=== PATIENT | male | born 1960 | race Two or more races ===

== ENCOUNTER 2019-11-23 17:45 | Inpatient (IN) | payer MEDICAID ==
[~2019-11-23] VITALS: Ht 167.6 cm; Wt 54.4 kg
[2019-11-23] MEDS ORDERED: IV NORMAL SALINE 1000 ML BAG IV ONE (18:15)
[2019-11-23 18:38] LABS: BASOPHILS # (AUTO) 0.1 K/uL (0.0-8.0); EOSINOPHILS # (AUTO) 0.1 K/uL (0.0-0.7); EOSINOPHILS % (AUTO) 0.9 % (0.0-7.0); HEMATOCRIT 36.2 % (36.7-47.1); HEMOGLOBIN 11.6 g/dL (12.5-16.3); LYMPHOCYTES # (AUTO) 2.7 K/uL (20.0-40.0); LYMPHOCYTES % (AUTO) 28.4 % (20.5-51.5); MEAN CORPUSCULAR HEMOGLOBIN 23.5 uug (23.8-33.4); MEAN CORPUSCULAR HGB CONC 32 g/dL (32.5-36.3); MEAN CORPUSCULAR VOLUME 73.3 fL (73.0-96.2); MONOCYTES # (AUTO) 0.9 K/uL (2.0-10.0); NEUTROPHILS # (AUTO) 5.7 K/uL (1.8-8.9); NEUTROPHILS % (AUTO) 60.7 % (38.5-71.5); PLATELET COUNT (AUTO) 456 K/uL (152-348); RED BLOOD CELL COUNT(AUTO) 4.94 MIL/uL (4.06-5.63); WHITE BLOOD COUNT (AUTO) 9.5 K/uL (3.6-10.2)
--- NOTE | 2019-11-23 18:57 | NUR ---
Pt BIB [facility], reports that they were called to [facility] for Heroin OD, and facility volunteers administered nasal naloxone x 1; paramedics had no other info. Pt alert but not responsive and did not follow commands. Pt kept moving during attempt at IV, kept pulling at wires and kicking legs. Called [facility] for pt, pt was restrained in 4 points, soft restraints. IV 20g placed in right upper arm, blood drawn and taken by agriculture laboratory technician, IV secured w/tape and coban. EKG done and given to eva THOMAS.
[2019-11-23 19:00] LABS: ALANINE AMINOTRANSFERASE 22 U/L (16-63); ALKALINE PHOSPHATASE 101 U/L (50-136); ASPARTATE AMINOTRANSFERASE 31 U/L (15-37); BILIRUBIN,DIRECT 0.1 mg/dL (0.0-0.2); BILIRUBIN,TOTAL 0.3 mg/dL (0.2-1.0); CARBON DIOXIDE 28 mmol/L (21-32); CHLORIDE 101 mmol/L (98-107); CREATININE 0.8 mg/dL (0.6-1.3); GLUCOSE 89 mg/dL (74-106); POTASSIUM 3.5 mmol/L (3.5-5.1); UREA NITROGEN, BLOOD 14 mg/dL (7-18)
--- NOTE | 2019-11-23 19:15 | NUR ---
Received report from AM nurse Valerio. Assume care for patient at this time. Pt noted with 4 point restraints but still unable to keep still in bed, continues to be restless. Labs and other interventions unable to be done at this time. Will wait for medications to work and for patient to calm down. Restraint assessment will be performed every 15 minutes going forward. VS monitored and stable at this time. Side rails up x 2. Bed locked in position. Cov[address] Will continue to monitor patient.
[2019-11-23 19:19] LABS: ETHANOL < 3 MG/DL (0-0)
--- NOTE | 2019-11-23 19:24 | NUR ---
[facility] Authorization number [id number]
[2019-11-23] MEDS ORDERED: LORAZEPAM 2 MG/1 ML VIAL IV ONE (19:30)
[2019-11-23 19:32] LABS: ACETAMINOPHEN < 2.0 ug/mL (10-30)
[2019-11-23] MEDS ORDERED: LORAZEPAM 2 MG/1 ML VIAL ONE (19:33)
[2019-11-23] MEDS ORDERED: CEFTRIAXONE 1 G in IV DEXTROSE 5% 50 ML IV ONE (19:45)
[2019-11-23] MEDS ORDERED: AZITHROMYCIN IV 500 MG in IV DEXTROSE 5% 250 ML IV ONE (19:45)
[2019-11-23 20:10] LABS: FERRITIN 25 ng/mL (26-388); LACTATE DEHYDROGENASE 223 U/L (85-227)
--- NOTE | 2019-11-23 20:15 | NUR ---
Pt went down for CT, assisted by field contact technician.
[2019-11-23 20:36] LABS: CREATINE KINASE, TOTAL 256 U/L (39-308)
[2019-11-23] MEDS ORDERED: CEFTRIAXONE /D5W 50ML IVPB **ER PYXIS IV ONE (20:48)
[2019-11-23] MEDS ORDERED: AZITHROMYCIN 500MG/ D5W 250ML IVPB **ER PYXIS ONLY IV ONE (20:48)
--- NOTE | 2019-11-23 21:15 | NUR ---
Pt back from CT at 2042. Asleep and does not appear combative at this time. Will release from restraints at this time. Complete linen change and good perineal care done because patient accidently wet himself while down on CT. Patient was not combative during care at all, even during in and out sandoval catheterization done, urine sample obtained. Placed patient on O2 because while sleeping his saturation fluctuates to 86-88% on RA. Head kept elevated. All due IV meds given and tolerated well, no issues noted. Kept on monitor. Tele sinus rhythm. Side rails up x2. Bed locked in place. Covid19/Fall/Safety precautions in place.
[2019-11-23] MEDS ORDERED: SODIUM BICARBONATE 4.2 % (NEUT) 5 ML VIAL TP ONE (21:30)
[2019-11-23] MEDS ORDERED: LIDOCAINE HCL 2% 20 ML VIAL TP ONE (21:30)
[2019-11-23 21:34] LABS: *BILIRUBIN,URIN NEGATIVE (NEGATIVE); *BLOOD, URINE NEGATIVE (NEGATIVE); *CLARITY,URINE CLEAR (CLEAR); *COLOR,URINE YELLOW (YELLOW); *KETONES,URINE NEGATIVE (NEGATIVE); *UROBILINOGEN,URINE 0.2 E.U./dl (NORMAL); LEUKOCYTE ESTERASE ,URINE NEGATIVE (NEGATIVE); NITRITE, URINE NEGATIVE (NEGATIVE); UGLUCOSE NEGATIVE (NEGATIVE)
[2019-11-23 21:41] LABS: *AMPHETAMINE, URINE POSITIVE (NEGATIVE); *BARBITURATE, URINE NEGATIVE (NEGATIVE); *CANNABINOID, URINE POSITIVE (NEGATIVE); *COCCAINE, URINE POSITIVE (NEGATIVE); *OPIATE, URINE POSITIVE (NEGATIVE); *PHENCYCLIDINE SCREEN,URINE NEGATIVE (NEGATIVE)
--- NOTE | 2019-11-23 22:15 | NUR ---
Pt remains asleep at this time, no combative or violent behavior noted from patient. Vitals continued to be monitored and remains stable. Kept on O2 2LPM via nasal cannula appears effective. Sinus rhythm on tele at 77 at this time. Bed rails x 2, bed locked in position. Pt is pending admission, insurance is being reviewed at this time.
[2019-11-23] MEDS ORDERED: MAGNESIUM HYDROXIDE 30 ML LIQUID UDC PO PRN (22:30)
[2019-11-23] MEDS ORDERED: LORAZEPAM 2 MG/1 ML VIAL IV PRN (22:30)
[2019-11-23] MEDS ORDERED: ENALAPRILAT DIHYDRATE 1.25 MG/1 ML VIAL IV PRN (22:30)
[2019-11-23] MEDS ORDERED: ALBUTEROL SULFATE 8 GM HFA.AER.AD IH PRN (22:30)
[2019-11-23] MEDS ORDERED: ACETAMINOPHEN 325 MG TABLET PO PRN (22:30)
[2019-11-23] MEDS ORDERED: ONDANSETRON 4 MG/2 ML VIAL IV PRN (22:30)
[2019-11-23] MEDS ORDERED: MORPHINE SULFATE 2 MG/1 ML DISP.SYRIN IV PRN (22:30)
--- NOTE | 2019-11-23 22:30 | NUR ---
[facility] contacted for Panel call with Dr. June for admission.
--- NOTE | 2019-11-23 22:31 | NUR ---
Followed up with 3rd floor Charge Nurse for Room assignment. Pt will be going to Room 212.
--- NOTE | 2019-11-23 22:42 | NUR ---
Pt. admitted to Tele Room 212 , under care of Dr. June Belongs List completed, and accounted for. COVID 19 test done. Will call RN for report and send patient up.
--- NOTE | 2019-11-23 22:45 | NUR ---
Called Kym ROA to give report, will call back.
--- NOTE | 2019-11-23 23:26 | NUR ---
Report given to Kym ROA.
--- NOTE | 2019-11-23 23:45 | NUR ---
Patient transported to 2nd floor via gurney, assisted by AMARJIT. All belongings with patient. Warm handoff to Kym ROA. Pt stable condition.
--- NOTE | 2019-11-23 23:50 | NUR ---
RECEIVED PT FROM ER VIA [facility]OVANY. PT IN NO ACUTE DISTRESS. IV INTACT, UNDER THE CARE OF DR. VIDAL. DX:PNA POSSIBLE COVID. BELONGING LIST DONE. ADMISSION PROCESS AND CARE PLAN INITIATED. [facility] ASSESSMENT DONE. OPEN WOUND ON LEFT LEG. OPEN WOUND ON LEFT THUMB. SAFETY AND COMFORT PROVIDED. WILL CONTINUE TO MONITOR.
[2019-11-23 23:52] VITALS: BP 109/64
[2019-11-24] MEDS ORDERED: PIPERACILLIN SODIUM/TAZOBACTAM 3.375 G in IV DEXTROSE 5% 50 ML IV SCH ×2
[2019-11-24] MEDS ORDERED: PIPERACILLIN/TAZOBACTAM/D5W 100 ML IV ONE (01:14)
[2019-11-24] MEDS: PIPERACILLIN SODIUM/TAZOBACTAM 3.375 G in IV DEXTROSE 5% 50 ML IV SCH ×4 (02:05→21:14)
[2019-11-24 04:30] VITALS: BP 100/84
[2019-11-24] MEDS ORDERED: ENOXAPARIN SODIUM 60 MG/0.6 ML DISP.SYRIN SQ STA (05:38)
[2019-11-24] MEDS: PANTOPRAZOLE SODIUM 40 MG TABLET.DR PO SCH (06:08)
--- NOTE | 2019-11-24 06:38 | NUR ---
PT SLEPT COMFORTABLY. PT IN NO ACUTE DISTRESS. IV INTACT. PRESCRIBED MEDICATION GIVEN AND PT TOLERATED IT WELL. PT FOLLOWS COMMAND. SAFETY AND COMFORT PROVIDED. WILL ENDORSE TO INCOMING NURSE FOR CONTINUITY OF CARE.
[2019-11-24 07:22] LABS: BASOPHILS # (AUTO) 0.1 K/uL (0.0-8.0); BASOPHILS % (AUTO) 0.8 % (0.0-2.0); EOSINOPHILS # (AUTO) 0.1 K/uL (0.0-0.7); EOSINOPHILS % (AUTO) 2.1 % (0.0-7.0); HEMATOCRIT 34.4 % (36.7-47.1); LYMPHOCYTES # (AUTO) 1.8 K/uL (20.0-40.0); LYMPHOCYTES % (AUTO) 28.5 % (20.5-51.5); MEAN CORPUSCULAR HEMOGLOBIN 23.5 uug (23.8-33.4); MEAN CORPUSCULAR HGB CONC 32 g/dL (32.5-36.3); MEAN CORPUSCULAR VOLUME 73.6 fL (73.0-96.2); MONOCYTES # (AUTO) 0.7 K/uL (2.0-10.0); MONOCYTES % (AUTO) 10.5 % (0.0-11.0); NEUTROPHILS # (AUTO) 3.6 K/uL (1.8-8.9); NEUTROPHILS % (AUTO) 58.1 % (38.5-71.5); PLATELET COUNT (AUTO) 403 K/uL (152-348); RED BLOOD CELL COUNT(AUTO) 4.67 MIL/uL (4.06-5.63)
[2019-11-24 07:44] LABS: WHITE BLOOD COUNT (AUTO) 6.2 K/uL (3.6-10.2)
[2019-11-24 08:47] LABS: BILIRUBIN,TOTAL 0.3 mg/dL (0.2-1.0); CREATININE 0.8 mg/dL (0.6-1.3); MAGNESIUM 2.3 mg/dL (1.8-2.4); PHOSPHOROUS 3.7 mg/dL (2.5-4.9); POTASSIUM 3.5 mmol/L (3.5-5.1); TOTAL PROTEIN, SERUM 7.7 g/dL (6.4-8.2)
[2019-11-24 09:28] VITALS: BP 110/70
[2019-11-24 09:58] LABS: EOSINOPHILS % (MANUAL) 3 % (0-8); LYMPHOCYTES % (MANUAL) 32 % (20-40); MONOCYTES % (MANUAL) 10 % (2-10); NEUTROPHILS % (MANUAL) 55 % (42-75)
--- NOTE | 2019-11-24 11:05 | NUR ---
Patient no home meds or prescription in the chart. Pharmacy aware.
--- NOTE | 2019-11-24 12:17 | NUR ---
WOUND CARE CONSULT: REVIEWED CHART, NURSING DOCUMENTATION AND PHOTOS WHICH SHOW SWELLING AND DRY WOUND TO LEFT LOWER LEG. RECOMMEND DPM CONSULT. DR MORALES NOTIFIED OF CONSULT REQUEST. RECOMMENDATIONS MADE FOR SKIN PROTECTION. DISCUSSED WITH NURSING STAFF. IN AGREEMENT WITH PLAN OF CARE. Addendum: 11/24/19 at 1237 by LESLIE WISEMAN RN ABOVE WOUND CARE CONSULT WAS DONE BY LESLIE WISEMAN COMMODITY TRADER.
[2019-11-24] MEDS ORDERED: OLANZAPINE 10 MG VIAL IM ONE (13:15)
--- NOTE | 2019-11-24 13:27 | NUR ---
Around 120pm, Patient call light and asking for belongings. The fiction writer respond and check belongings in the closet. Patient did not recognize belongings, screams hard and verbalize" this in not my thing, Im not suppose to be here, Im not sick. KESHA Patel notified, ordered xyprexa 5mg IM now. Patient continue screaming and started walking in the hallway. Security notified and called [facility]. Security helps us put patient to bed while patient continue arguing with staff. Upon preparing medicines. Patient continue screaming and verbalize, he is not suppose to be here, he is not sick. Patient hit the window. no visible injury noted. no complaint of pain. Xyprexa 5mg IM given as ordered for agitation with assist of 2 guards and nurses. will continue monitor for safety.
[2019-11-24] MEDS ORDERED: HALOPERIDOL DECANOATE 50 MG/1 ML AMPUL IM PRN (17:30)
[2019-11-24] MEDS ORDERED: HALOPERIDOL LACTATE 5 MG/1 ML VIAL IM PRN (18:15)
--- NOTE | 2019-11-24 18:30 | NUR ---
Patient started to scream and asking to go home. KESHA Patel notified and order haldol 5mg every 6 hours PRN. Order ativan 0.5mg every 6 hours PRN for agitation/psychosis. Patient will start morphine injection 1ml every 3 hours for severe pain PRN. Called security to initiate haldol IM 5mg with good effect. will continue monitor for safety.
--- NOTE | 2019-11-24 19:40 | NUR ---
Received patient lying on his right side, appears sleeping but totally naked. All clothes, tele box, linens on the floor. Attempted to dress him up and put back the tele but he swung his left arm on me, very resistive to care at this time. MT made aware. Safety measures, fall and contact isolation maintained and observed. Continue care as planned.
[2019-11-24] MEDS ORDERED: ENOXAPARIN SODIUM 40 MG/0.4 ML DISP.SYRIN SQ SCH (21:00)
--- NOTE | 2019-11-24 22:15 | NUR ---
SECURITY SYSTEM SALES CONSULTANT assigned, Ralph found a pack of cigarette and a medical accountant at patient's room/belonging and patient keeps denying that he's not smoking. Said items kept at nurses station drawer. Will endorse to oncoming nurse.
[2019-11-25] MEDS: PIPERACILLIN SODIUM/TAZOBACTAM 3.375 G in IV DEXTROSE 5% 50 ML IV SCH (05:47)
[2019-11-25] MEDS: PANTOPRAZOLE SODIUM 40 MG TABLET.DR PO SCH (05:48)
--- NOTE | 2019-11-25 06:29 | NUR ---
Shift End Report: VS stable. Remain afebrile. Denied any pain/discomforts. No s/s of respiratory distress. No s/s of adverse reaction noted from Zosyn IV ATB. Slept good. Contact isolation maintained. No significant event reported.
--- NOTE | 2019-11-25 07:20 | NUR ---
Received patient resting in bed, awake and alert. Patient denies pain and discomfort. No acute distress noted. Bed in lowest position, side rails up x2, call light within reach. Will continue to monitor.
[2019-11-25] MEDS ORDERED: ALBUTEROL SULFATE 2.5 MG/3 ML NEBU NEB PRN (07:45)
[2019-11-25 09:34] LABS: BASOPHILS # (AUTO) 0.1 K/uL (0.0-8.0); BASOPHILS % (AUTO) 1.1 % (0.0-2.0); EOSINOPHILS # (AUTO) 0.1 K/uL (0.0-0.7); EOSINOPHILS % (AUTO) 1.8 % (0.0-7.0); LYMPHOCYTES # (AUTO) 2.5 K/uL (20.0-40.0); LYMPHOCYTES % (AUTO) 32.6 % (20.5-51.5); MEAN CORPUSCULAR HEMOGLOBIN 23.6 uug (23.8-33.4); MEAN CORPUSCULAR HGB CONC 32 g/dL (32.5-36.3); MONOCYTES # (AUTO) 0.5 K/uL (2.0-10.0); MONOCYTES % (AUTO) 6.5 % (0.0-11.0); NEUTROPHILS # (AUTO) 4.5 K/uL (1.8-8.9); PLATELET COUNT (AUTO) 446 K/uL (152-348); RED BLOOD CELL COUNT(AUTO) 5.52 MIL/uL (4.06-5.63); WHITE BLOOD COUNT (AUTO) 7.7 K/uL (3.6-10.2)
[2019-11-25 09:47] LABS: HEMATOCRIT 40.9 % (36.7-47.1)
[2019-11-25 10:02] LABS: EOSINOPHILS % (MANUAL) 1 % (0-8); LYMPHOCYTES % (MANUAL) 35 % (20-40); MONOCYTES % (MANUAL) 8 % (2-10); MYELOCYTES % 2 % (0-0); NEUTROPHILS % (MANUAL) 54 % (42-75)
[2019-11-25 10:14] LABS: CREATININE 0.9 mg/dL (0.6-1.3); MAGNESIUM 2.4 mg/dL (1.8-2.4); PHOSPHOROUS 3.8 mg/dL (2.5-4.9)
--- NOTE | 2019-11-25 12:26 | NUR ---
Patient discharged to self, taxi voucher given to patient.Patient signed D/C instructions, patient verbally understands discharge instructions. Patient refuses resources for the homeless. D/C IV, helped patient get dressed and stand. Escorted patient to elevator by staff.
== END 2019-11-25 12:26 | disposition home or self-care (01) | DRG 816 ==
LOC: ER 17:48 → TELE 23:12
PROVIDERS: ADMIT Nurse Practitioner Acute Care; ATTEND Nurse Practitioner Acute Care
DX: T40.1X1A Poisoning by heroin, accidental (unintentional), initial encounter (principal); G92 Toxic encephalopathy; J15.9 Unspecified bacterial pneumonia; Y92.59 Other trade areas as the place of occurrence of the external cause; F17.210 Nicotine dependence, cigarettes, uncomplicated; Z59.0 Homelessness; F11.90 Opioid use, unspecified, uncomplicated; Y92.009 Unspecified place in unspecified non-institutional (private) residence as the place of occurrence of the external cause; I87.2 Venous insufficiency (chronic) (peripheral); L97.829 Non-pressure chronic ulcer of other part of left lower leg with unspecified severity
CPT/HCPCS: 36415; 70030-TC; 70450; 71045; 71250; 72125; 80307; 80329; 83550; 83605; 83615; 83735; 84100; 84443; 85025; 85730; 86140; 87040; 87086; 93005; A4663; C1758; G0378; G0480; G0480-TC; J0456; J0696; J1630; J1650; J2060; J2358; J2543; J3535; J7030; J7060; U0003-CS

== ENCOUNTER 2024-12-02 14:15 | Inpatient (IN) | payer MEDICARE, OTHER ==
[~2024-12-02] VITALS: Ht 182.9 cm; Wt 51.0 kg
[2024-12-02] MEDS ORDERED: BISA10SU61 RC (14:44)
[2024-12-02] MEDS ORDERED: PANT40TA49 PO (14:44)
[2024-12-02] MEDS ORDERED: METO25TA6 PO (14:44)
[2024-12-02] MEDS ORDERED: FERR324T11 PO (14:44)
[2024-12-02] MEDS ORDERED: AMIO200T5 PO (14:44)
[2024-12-02] MEDS ORDERED: NA P133E RC (14:44)
[2024-12-02] MEDS ORDERED: MIRT-73 PO (14:44)
[2024-12-02] MEDS ORDERED: IPRA4AER IH (14:44)
[2024-12-02] MEDS ORDERED: ATOV750O4 PO (14:44)
[2024-12-02] MEDS ORDERED: ZINC56.713 TP (14:44)
[2024-12-02] MEDS ORDERED: MAGN400O6 PO (14:44)
[2024-12-02] MEDS ORDERED: DEXT1DRO3 EACHEYE (14:44)
[2024-12-02] MEDS ORDERED: HYDR-4209 PO (14:44)
[2024-12-02] MEDS ORDERED: LIDO1ADH43 TP (14:44)
[2024-12-02] MEDS ORDERED: HEPA500034 SQ (14:44)
[2024-12-02] MEDS ORDERED: LEVO25TA9 PO (14:44)
[2024-12-02] MEDS ORDERED: AZIT500T4 PO (14:44)
[2024-12-02] MEDS ORDERED: ACET-2154 PO (14:44)
[2024-12-02] MEDS ORDERED: POLY17PO4 PO (14:44)
[2024-12-02] MEDS ORDERED: FOLI0.8T2 PO (14:44)
[2024-12-02 15:15] LABS: BASOPHILS # (AUTO) 0.1 K/UL (0.0-0.2); EOSINOPHILS % (AUTO) 0.4 % (0.0-7.0); HEMATOCRIT 27.5 % (36.7-47.1); HEMOGLOBIN 8.9 g/dL (12.5-16.3); LYMPHOCYTES # (AUTO) 1.1 K/uL (0.8-4.8); LYMPHOCYTES % (AUTO) 21.1 % (20.5-51.5); MEAN CORPUSCULAR HEMOGLOBIN 27.7 uug (23.8-33.4); MEAN CORPUSCULAR HGB CONC 32 g/dL (32.5-36.3); MEAN CORPUSCULAR VOLUME 85.4 fL (73.0-96.2); MONOCYTES # (AUTO) 0.4 K/uL (0.1-1.30); MONOCYTES % (AUTO) 8.1 % (0.0-11.0); NEUTROPHILS # (AUTO) 3.6 K/uL (1.8-8.9); NEUTROPHILS % (AUTO) 69.4 % (38.5-71.5); PLATELET COUNT (AUTO) 330 K/uL (152-348); RED BLOOD CELL COUNT(AUTO) 3.22 MIL/uL (4.06-5.63); RED CELL DISTRIBUTION WIDTH 15.6 % (12.1-16.2); WHITE BLOOD COUNT (AUTO) 5.1 K/uL (3.6-10.2)
[2024-12-02 15:25] LABS: CALCIUM 7.5 mg/dL (8.5-10.1); CARBON DIOXIDE 22 mmol/L (21-32); CHLORIDE 100 mmol/L (98-107); CREATININE 6.7 mg/dL (0.6-1.3); DIFFERENTIAL COMMENT 1; GLUCOSE 87 mg/dL (74-106); POTASSIUM 4.6 mmol/L (3.5-5.1); SODIUM SERUM 132 mmol/L (136-145); UREA NITROGEN, BLOOD 46 mg/dL (7-18)
[2024-12-02 15:30] LABS: AMMONIA 14 umol/L (11-32); ETHANOL < 3 MG/DL (0-10)
[2024-12-02 15:31] LABS: ACETAMINOPHEN < 2.0 ug/mL (10-30); ALANINE AMINOTRANSFERASE 10 U/L (16-63); ALKALINE PHOSPHATASE 115 U/L (50-136); ASPARTATE AMINOTRANSFERASE 31 U/L (15-37); BILIRUBIN,DIRECT 0.1 mg/dL (0.0-0.2); BILIRUBIN,TOTAL 0.2 mg/dL (0.2-1.0); TOTAL PROTEIN, SERUM 5.6 g/dL (6.4-8.2)
[2024-12-02 15:32] LABS: ALBUMIN 0.9 g/dL (3.4-5.0)
[2024-12-02 17:05] LABS: *BILIRUBIN,URIN NEGATIVE (NEGATIVE); *BLOOD, URINE 2+ (NEGATIVE); *CLARITY,URINE CLEAR (CLEAR); *COLOR,URINE YELLOW (YELLOW); *KETONES,URINE NEGATIVE (NEGATIVE); *PROTEIN,URINE 3+ (NEGATIVE); *UROBILINOGEN,URINE 0.2 E.U./dl (NORMAL); LEUKOCYTE ESTERASE ,URINE NEGATIVE (NEGATIVE); NITRITE, URINE NEGATIVE (NEGATIVE); PH,URINE 7.5 (5.0-8.0); UGLUCOSE TRACE (NEGATIVE)
[2024-12-02 17:13] LABS: WBC,URINE 0-3 /HPF (0-3)
[2024-12-02 17:15] LABS: *AMPHETAMINE, URINE NEGATIVE (NEGATIVE); *BARBITURATE, URINE NEGATIVE (NEGATIVE); *BENZODIAZEPINE, URINE NEGATIVE (NEGATIVE); *CANNABINOID, URINE NEGATIVE (NEGATIVE); *COCCAINE, URINE NEGATIVE (NEGATIVE); *OPIATE, URINE NEGATIVE (NEGATIVE); *PHENCYCLIDINE SCREEN,URINE NEGATIVE (NEGATIVE); BACTERIA,URINE FEW /HPF (NONE SEEN); FENTANYL, URINE POSITIVE (NEGATIVE); SQUAMOUS EPITHELIAL CELL,UR FEW /HPF (NONE SEEN)
[2024-12-02] MEDS ORDERED: AZITHROMYCIN 250 MG TABLET PO ONE (18:45)
[2024-12-02] MEDS ORDERED: BISACODYL 10 MG SUPP.RECT RC PRN (18:45)
[2024-12-02] MEDS ORDERED: ONDANSETRON 4 MG/2 ML VIAL IV PRN (19:00)
[2024-12-02] MEDS ORDERED: REMEDY ESSENTIAL ZINC PASTE 113 GM TP PRN (19:00)
[2024-12-02 21:17] VITALS: BP 92/60; TEMP 98.3; O2SAT 94
[2024-12-02] MEDS: LEVOTHYROXINE SODIUM 100 MCG TABLET PO ONE (22:19)
[2024-12-02] MEDS ORDERED: MIRTAZAPINE 15 MG TAB.RAPDIS ONE (22:45)
[2024-12-02] MEDS: MIRTAZAPINE 15 MG TAB.RAPDIS PO SCH (22:48)
[2024-12-02] MEDS: HEPARIN SODIUM,PORCINE 5,000 UNITS/ML VIAL SQ SCH (22:49)
[2024-12-03] VITALS (7 sets, daily range): BP systolic 93–133; BP diastolic 56–72; TEMP 97.5–98.4; O2SAT 6–99
[2024-12-03 06:26] LABS: BASOPHILS % (AUTO) 1.1 % (0.0-2.0); HEMATOCRIT 25.5 % (36.7-47.1); HEMOGLOBIN 8.4 g/dL (12.5-16.3); LYMPHOCYTES % (AUTO) 23.7 % (20.5-51.5); MEAN CORPUSCULAR HEMOGLOBIN 27.8 uug (23.8-33.4); MEAN CORPUSCULAR HGB CONC 33 g/dL (32.5-36.3); MEAN CORPUSCULAR VOLUME 84.2 fL (73.0-96.2); MONOCYTES # (AUTO) 0.4 K/uL (0.1-1.30); MONOCYTES % (AUTO) 10.5 % (0.0-11.0); NEUTROPHILS # (AUTO) 2.6 K/uL (1.8-8.9); NEUTROPHILS % (AUTO) 63.7 % (38.5-71.5); PLATELET COUNT (AUTO) 329 K/uL (152-348); RED BLOOD CELL COUNT(AUTO) 3.03 MIL/uL (4.06-5.63); RED CELL DISTRIBUTION WIDTH 15.2 % (12.1-16.2); WHITE BLOOD COUNT (AUTO) 4.2 K/uL (3.6-10.2)
[2024-12-03] MEDS: PANTOPRAZOLE SODIUM 40 MG TABLET.DR PO SCH (06:29)
[2024-12-03 06:30] LABS: DIFFERENTIAL COMMENT 1
[2024-12-03 06:48] LABS: CALCIUM 7.2 mg/dL (8.5-10.1); MAGNESIUM 2.1 mg/dL (1.8-2.4); POTASSIUM 4.2 mmol/L (3.5-5.1)
[2024-12-03 06:59] LABS: CREATININE 7.6 mg/dL (0.6-1.3); PHOSPHOROUS 8.4 mg/dL (2.5-4.9)
[2024-12-03] MEDS ORDERED: AZITHROMYCIN 250 MG TABLET PO ONE (09:00)
[2024-12-03] MEDS ORDERED: PANTOPRAZOLE SODIUM 40 MG TABLET.DR PO SCH (09:00)
[2024-12-03] MEDS: LEVOTHYROXINE SODIUM 25 MCG TABLET PO SCH (10:09)
[2024-12-03] MEDS: AMIODARONE HCL 200 MG TABLET PO SCH (10:10)
[2024-12-03] MEDS: METOPROLOL TARTRATE 25 MG TABLET PO SCH (10:10)
[2024-12-03] MEDS: NEPRO (VANILLA) 237 ML CAN PO SCH (14:36)
[2024-12-03] MEDS: HYDROCODONE/APAP 10-325 MG TABLET PO PRN (15:58)
[2024-12-03] MEDS: AZITHROMYCIN 250 MG TABLET PO SCH (15:59)
[2024-12-04 05:51] VITALS: BP 100/52; TEMP 98.7; O2SAT 96
[2024-12-04 06:11] LABS: HEPATITIS B SURFACE AB, QUAL Reactive (.); HEPATITIS B SURFACE AG Negative (Negative)
[2024-12-04 06:52] LABS: BASOPHILS % (AUTO) 1.3 % (0.0-2.0); EOSINOPHILS % (AUTO) 0.7 % (0.0-7.0); HEMATOCRIT 25.6 % (36.7-47.1); HEMOGLOBIN 8.6 g/dL (12.5-16.3); LYMPHOCYTES % (AUTO) 25.3 % (20.5-51.5); MEAN CORPUSCULAR HEMOGLOBIN 27.7 uug (23.8-33.4); MEAN CORPUSCULAR HGB CONC 34 g/dL (32.5-36.3); MEAN CORPUSCULAR VOLUME 82.6 fL (73.0-96.2); MONOCYTES # (AUTO) 0.4 K/uL (0.1-1.30); NEUTROPHILS # (AUTO) 2.4 K/uL (1.8-8.9); NEUTROPHILS % (AUTO) 62.7 % (38.5-71.5); PLATELET COUNT (AUTO) 281 K/uL (152-348); RED CELL DISTRIBUTION WIDTH 15.5 % (12.1-16.2); WHITE BLOOD COUNT (AUTO) 3.8 K/uL (3.6-10.2)
[2024-12-04 07:02] LABS: CALCIUM 6.8 mg/dL (8.5-10.1); CREATININE 5.5 mg/dL (0.6-1.3); POTASSIUM 3.5 mmol/L (3.5-5.1)
[2024-12-04 07:04] LABS: DIFFERENTIAL COMMENT 1
[2024-12-04 07:43] VITALS: BP 100/52; TEMP 99.5; O2SAT 97
[2024-12-04] MEDS: ATOVAQUONE 750 MG/5 ML SUSPENSION UDC PO SCH (11:25)
[2024-12-04 12:00] VITALS: BP 102/53; TEMP 98.3; O2SAT 98
[2024-12-04 15:55] VITALS: BP 135/58; TEMP 98.3; O2SAT 96
[2024-12-04 23:31] VITALS: BP 106/57; TEMP 98.7; O2SAT 97
[2024-12-05 00:55] VITALS: BP 101/56; TEMP 98.7; O2SAT 98
[2024-12-05 04:32] VITALS: BP 119/63; TEMP 97.8; O2SAT 96
[2024-12-05 06:23] VITALS: BP 119/65; TEMP 97.8; O2SAT 95
[2024-12-05 07:17] LABS: BASOPHILS # (AUTO) 0.1 K/UL (0.0-0.2); BASOPHILS % (AUTO) 1.2 % (0.0-2.0); EOSINOPHILS # (AUTO) 0.1 K/uL (0.0-0.7); EOSINOPHILS % (AUTO) 1.3 % (0.0-7.0); HEMATOCRIT 25.4 % (36.7-47.1); HEMOGLOBIN 8.3 g/dL (12.5-16.3); LYMPHOCYTES # (AUTO) 1.5 K/uL (0.8-4.8); LYMPHOCYTES % (AUTO) 29.3 % (20.5-51.5); MEAN CORPUSCULAR HEMOGLOBIN 27.7 uug (23.8-33.4); MEAN CORPUSCULAR HGB CONC 33 g/dL (32.5-36.3); MEAN CORPUSCULAR VOLUME 84.5 fL (73.0-96.2); MONOCYTES # (AUTO) 0.5 K/uL (0.1-1.30); MONOCYTES % (AUTO) 10.7 % (0.0-11.0); NEUTROPHILS # (AUTO) 2.9 K/uL (1.8-8.9); NEUTROPHILS % (AUTO) 57.5 % (38.5-71.5); PLATELET COUNT (AUTO) 318 K/uL (152-348); RED CELL DISTRIBUTION WIDTH 14.9 % (12.1-16.2)
[2024-12-05 07:26] LABS: DIFFERENTIAL COMMENT 1
[2024-12-05 07:27] LABS: CALCIUM 6.9 mg/dL (8.5-10.1); CREATININE 6.5 mg/dL (0.6-1.3); POTASSIUM 3.9 mmol/L (3.5-5.1)
[2024-12-05] MEDS ORDERED: METHADONE HCL 10 MG TABLET PO SCH (11:00)
[2024-12-05 12:00] VITALS: BP 121/71; TEMP 98; O2SAT 100
[2024-12-05] MEDS ORDERED: HYDROCODONE/APAP 10-325 MG TABLET PO PRN (12:30)
[2024-12-05] MEDS: METHADONE ORAL CONCENTRATE SOL 10 MG/ML ORAL.CONC PO SCH (12:45)
[2024-12-05 16:00] VITALS: BP 138/76; TEMP 97.2; O2SAT 100
[2024-12-05 19:00] VITALS: BP 107/61; TEMP 98.3; O2SAT 98
[2024-12-05] MEDS: ACETAMINOPHEN 325 MG TABLET PO PRN (21:22)
[2024-12-06] VITALS (7 sets, daily range): BP systolic 110–150; BP diastolic 61–90; TEMP 97.7–98.7; O2SAT 95–99
[2024-12-07 05:55] VITALS: BP 108/64; TEMP 98.6; O2SAT 94
[2024-12-07 08:00] VITALS: BP 114/53; TEMP 98.7; O2SAT 97
[2024-12-07 11:00] VITALS: BP 117/66; TEMP 97.7; O2SAT 96
[2024-12-07 16:12] VITALS: BP 107/66; TEMP 97.3; O2SAT 98
[2024-12-08 00:02] VITALS: BP 140/78; TEMP 97.6; O2SAT 98
[2024-12-08 04:47] VITALS: BP 134/76; TEMP 97.8; O2SAT 96
[2024-12-08 07:55] VITALS: BP 131/76; TEMP 97.7; O2SAT 99
[2024-12-08 11:20] VITALS: BP 120/67; TEMP 97.7; O2SAT 97
[2024-12-08] MEDS: ALBUMIN HUMAN 25% 50 ML IV SCH (13:54)
[2024-12-08 16:30] VITALS: BP 111/63; TEMP 98.8; O2SAT 97
[2024-12-08 19:27] VITALS: BP 94/58; TEMP 98.3; O2SAT 95
[2024-12-09 05:48] VITALS: BP 105/61; TEMP 98.2; O2SAT 93
[2024-12-09 11:43] VITALS: BP 101/52; TEMP 98; O2SAT 95
== END 2024-12-09 14:55 | DRG 291 ==
LOC: ER 14:15 → TELE3 20:05 → MEDSURG3 12-08 09:56
PROVIDERS: ADMIT Nurse Practitioner Acute Care; ATTEND Nurse Practitioner Acute Care
PROC: 5A1D70Z Performance of Urinary Filtration, Intermittent, Less than 6 Hours Per Day (ICD-10-PCS; principal; 2024-12-03)
PROC: 30233J1 Transfusion of Nonautologous Serum Albumin into Peripheral Vein, Percutaneous Approach (ICD-10-PCS; 2024-12-08)
DX: I13.2 Hypertensive heart and chronic kidney disease with heart failure and with stage 5 chronic kidney disease, or end stage renal disease (principal); E43 Unspecified severe protein-calorie malnutrition; I50.33 Acute on chronic diastolic (congestive) heart failure; N18.6 End stage renal disease; B20 Human immunodeficiency virus [HIV] disease; E87.1 Hypo-osmolality and hyponatremia; R64 Cachexia; Z68.1 Body mass index [BMI] 19.9 or less, adult; F11.20 Opioid dependence, uncomplicated; H54.61 Unqualified visual loss, right eye, normal vision left eye; E03.9 Hypothyroidism, unspecified; Z79.890 Hormone replacement therapy; B18.2 Chronic viral hepatitis C; E88.09 Other disorders of plasma-protein metabolism, not elsewhere classified; F41.9 Anxiety disorder, unspecified; G89.4 Chronic pain syndrome; I25.2 Old myocardial infarction; Z99.2 Dependence on renal dialysis; Z87.891 Personal history of nicotine dependence; Z87.01 Personal history of pneumonia (recurrent); N40.0 Benign prostatic hyperplasia without lower urinary tract symptoms; I48.91 Unspecified atrial fibrillation; Z86.2 Personal history of diseases of the blood and blood-forming organs and certain disorders involving the immune mechanism; F91.9 Conduct disorder, unspecified; D53.9 Nutritional anemia, unspecified; R79.89 Other specified abnormal findings of blood chemistry; F32.9 Major depressive disorder, single episode, unspecified; K21.9 Gastro-esophageal reflux disease without esophagitis
CPT/HCPCS: 36415; 70450; 71045; 71250; 72125; 83605; 83735; 84100; 84443; 84484; 85025; 85730; 86706; 87040; 87086; 87340; A4606; A4663; A6209; A6213; G0378; G0480; J1644; J7040; J8499; P9047; Q0144